=== PATIENT | female | born 1945 | race Caucasian/White ===

== ENCOUNTER 2017-07-14 12:02 | Inpatient (IN) | payer MEDICARE, OTHER ==
--- NOTE | 2017-07-14 12:20 | PDOC ---
History of Present Illness - General Chief Complaint: Rash Stated Complaint: EYE PROBLEM, COLD SORE Time Seen by Provider: 07/14/17 12:19 Past History - Past Medical History Allergies/Adverse Reactions: Allergies Allergy/AdvReac Type Severity Reaction Status Date / Time No Known Allergies Allergy Verified 07/14/17 12:03 Home Medications: Ambulatory Orders Esomeprazole Mag Trihydrate [Nexium] 40 mg PO DAILY 08/23/14 predniSONE [Deltasone -] 20 mg PO DAILY 08/23/14 Albuterol Sulfate Inhaler - [Ventolin HFA Inhaler -] 1 - 2 inh PO Q4H #1 inhaler 08/26/14 Amlodipine Besylate/Benazepril [Lotrel 10-20 mg Capsule] 1 each PO DAILY #30 capsule 08/26/14 Glyburide 5 mg PO DAILY #30 tablet 08/26/14 Guaifenesin [Robitussin -] 5 ml PO Q6H PRN #30 cup 08/26/14 Oseltamivir Phosphate [Tamiflu -] 75 mg PO BID #7 capsule 08/26/14 Sitagliptin Phosphate [Januvia] 100 mg PO DAILY@0700 #30 ud 08/26/14 Anemia: No Cancer: No Cardiac Disorders: No CVA: No COPD: No Diabetes: No HTN: Yes Hypercholesterolemia: No Seizures: No - Surgical History Cholecystectomy: Yes - Suicide/Smoking/Psychosocial Hx Smoking Status: No Smoking History: Never smoked Number of Cigarettes Smoked Daily: 0 Information on smoking cessation initiated: No Hx Alcohol Use: No Drug/Substance Use Hx: No Substance Use Type: None *Physical Exam - Vital Signs Last Vital Signs Temp Pulse Resp BP Pulse Ox 97.9 F 50 L 18 146/94 100 07/14/17 12:05 07/14/17 12:05 07/14/17 12:05 07/14/17 12:05 07/14/17 12:05 *DC/Admit/Observation/Transfer - Referrals Referrals: Ken Felipe [Primary Care Provider] - - Patient Instructions - Post Discharge Activity
[2017-07-14] MEDS ORDERED: SODIUM CHLORIDE 500 ML IV STA ×2 (12:50→14:18)
[2017-07-14] MEDS ORDERED: morphine SULFATE 4 MG/ML VIAL ONE (13:02)
[2017-07-14] MEDS ORDERED: morphine CARPU-JECT 4 MG/1 ML DISP.SYRIN IVPUSH ONE (13:02)
[2017-07-14] MEDS ORDERED: methylPREDNISolone NA SUCC 125 MG/2 ML VIAL ONE (13:03)
--- NOTE | 2017-07-14 13:14 | PDOC ---
History of Present Illness - General Chief Complaint: Rash Stated Complaint: EYE PROBLEM, COLD SORE Time Seen by Provider: 07/14/17 12:19 History Source: Patient, Family - History of Present Illness Timing/Duration: reports: other (6 days ago) Location: reports: extremities, face Past History - Past Medical History Allergies/Adverse Reactions: Allergies Allergy/AdvReac Type Severity Reaction Status Date / Time No Known Allergies Allergy Verified 07/14/17 12:03 Home Medications: Ambulatory Orders Esomeprazole Mag Trihydrate [Nexium] 40 mg PO DAILY 08/23/14 predniSONE [Deltasone -] 20 mg PO DAILY 08/23/14 Albuterol Sulfate Inhaler - [Ventolin HFA Inhaler -] 1 - 2 inh PO Q4H #1 inhaler 08/26/14 Amlodipine Besylate/Benazepril [Lotrel 10-20 mg Capsule] 1 each PO DAILY #30 capsule 08/26/14 Glyburide 5 mg PO DAILY #30 tablet 08/26/14 Guaifenesin [Robitussin -] 5 ml PO Q6H PRN #30 cup 08/26/14 Oseltamivir Phosphate [Tamiflu -] 75 mg PO BID #7 capsule 08/26/14 Sitagliptin Phosphate [Januvia] 100 mg PO DAILY@0700 #30 ud 08/26/14 Anemia: No Cancer: No Cardiac Disorders: No CVA: No COPD: No Diabetes: No HTN: Yes Hypercholesterolemia: No Seizures: No - Surgical History Cholecystectomy: Yes - Suicide/Smoking/Psychosocial Hx Smoking Status: No Smoking History: Never smoked Number of Cigarettes Smoked Daily: 0 Information on smoking cessation initiated: No Hx Alcohol Use: No Drug/Substance Use Hx: No Substance Use Type: None Review of Systems - Review of Systems Constitutional: Yes: Malaise, Weakness. No: Chills, Fever HEENTM: Yes: Mouth Pain Respiratory: No: Cough, Shortness of Breath Cardiac (ROS): No: Chest Pain ABD/GI: No: Diarrhea, Nausea, Vomiting Integumentary: Yes: Pruritus, Rash *Physical Exam - Vital Signs Last Vital Signs Temp Pulse Resp BP Pulse Ox 97.9 F 50 L 18 146/94 100 07/14/17 12:05 07/14/17 12:05 07/14/17 12:05 07/14/17 12:05 07/14/17 12:05 - Physical Exam General Appearance: Yes: Appropriately Dressed, Mild Distress HEENT: positive: Normal Voice, Other (minimal R conjunctival erythema w/ purulent discharge, hemorrhagic crusting andmucosal erosions to R upper lip and R buccal mucosa) Neck: positive: Supple Respiratory/Chest: positive: Lungs Clear, Normal Breath Sounds. negative: Respiratory Distress Cardiovascular: positive: Regular Rate, S1, S2 Female Pelvic Exam: positive: normal external exam Gastrointestinal/Abdominal: positive: Soft. negative: Tender Extremity: positive: Normal Inspection Integumentary: positive: Dry, Warm, Rash (multiple concentric lesions consisting of central erosion on an erythematous base w/ pale edematous rim c/w target lesion, also seen are a mixture of target lesions and erythematous plaques w/ dusky centers to extensor surface of b/l UE and over dosum of fingers b/l) Neurologic: positive: Fully Oriented, Alert, Normal Mood/Affect ED Treatment Course - LABORATORY CBC & Chemistry Diagram: 07/14/17 13:20 07/14/17 13:20 - RADIOLOGY Radiology Studies Ordered: Category Date Time Status CHEST X-RAY PORTABLE* [RAD] Stat Radiology 07/14/17 12:50 Ordered Medical Decision Making - Medical Decision Making 07/14/17 13:17 71-year-old female, history of hypertension, brought in by daughter for rash w/ malaise. As per family, patient developed painful rash to upper lip approximately 6 days ago that initially looked like blisters but has since gradually worsened and now involves oral mucosa with decreased po intake. Has also noticed pruritic rash to upper exts including palms. As per daughter, patient was seen by her primary doctor 4 days ago for R conjunctival erythema and discharge, was dx w/ conjunctivitis and was started on tobramycin ointment. Pt denies eye pain, fb sensation or visual changes. No fever, chills, nausea or vomiting. No drug/food allergies. Started on lisinopril 1 month ago. No lip , tongue swelling, voice changes, stridor or shortness of breath See exam High suspicion for erythema multiforme major, less likely SJS Stable in ED and non-toxic appearing w/ MM/cutaneous lesions classic for EM -pain control -IVF -steroids -wound care -labs -derm c/s -admission 07/14/17 13:[address] Abdalla of derm, who suggests findings most likely suggestive of erythema multiforme major and less likely SJR which is consistent with more of a diffuse rash and does not usually included target like lesions. Agrees with supportive care including lidex ointment to apply to oral wounds. Recommend drawing blood work for HSV 1/2. Hold off on antivirals at this time. MD to see patient in house in the a.m. 07/14/17 14:[address] Black who is covering for patient's PMD, Dr. Felipe, recommends protonix 40 twice a day. MD to place additional orders 0 *DC/Admit/Observation/Transfer Diagnosis at time of Disposition: Rash, Erythema multiforme with oral ulceration - Discharge Dispostion Condition at time of disposition: Fair Admit: Yes - Referrals - Patient Instructions - Post Discharge Activity
[2017-07-14] MEDS ORDERED: methylPREDNISolone NA SUCC 125 MG/2 ML VIAL IVPUSH ONE (13:27)
[2017-07-14 13:32] LABS: BASO % 0.7 % (0-2.0); EOS % 1.1 % (0-4.5); HEMOGLOBIN 13.7 GM/dL (10.7-15.3); LYMPH % 21.6 % (8-40); MCH 31.9 pg (25.7-33.7); MCHC 33.5 g/dl (32.0-36.0); MEAN CELL VOLUME 95.1 fl (80-96); MEAN PLT VOLUME 11.4 fl (7.5-11.1); MONO % 15.9 % (3.8-10.2); NEUT % 60.7 % (42.8-82.8); PLATELET COUNT 110 K/MM3 (134-434); RBC 4.31 M/mm3 (3.60-5.2); RDW 14.6 % (11.6-15.6); WHITE BLOOD COUNT 3.3 K/mm3 (4.0-10.0)
[2017-07-14 13:57] LABS: ANION GAP 5 (8-16); BLOOD UREA NITROGEN 18 mg/dL (7-18); CALCIUM 8.2 mg/dL (8.5-10.1); CHLORIDE 107 mmol/L (98-107); CO2 27 mmol/L (21-32); CREATININE 1.2 mg/dL (0.55-1.02); GLUCOSE,RANDOM 131 mg/dL (74-106); SGPT/ALT 23 U/L (12-78); SODIUM 139 mmol/L (136-145)
[2017-07-14 13:59] LABS: ALK PHOS 100 U/L (45-117); BILIRUBIN,TOTAL 1.1 mg/dL (0.2-1.0); TOT PROT 6.5 g/dl (6.4-8.2)
[2017-07-14 14:00] LABS: POTASSIUM 4.8 mmol/L (3.5-5.1); SGOT/AST 45 U/L (15-37)
[2017-07-14] MEDS ORDERED: PANTOPRAZOLE SODIUM 40 MG VIAL IVPUSH ONE (14:14)
[2017-07-14] MEDS: FLUOCINONIDE 0.05% TOP OINT (60 GM TUBE) TP SCH ×2 (15:00→21:45)
[2017-07-14] MEDS ORDERED: PANTOPRAZOLE SODIUM 40 MG VIAL ONE (16:43)
--- NOTE | 2017-07-14 17:45 | HP ---
Admitting History and Physical - Admission Chief Complaint: rash / inc blisters around the mouth History of Present Illness: 71-year-old female, history of hypertension, brought in by daughter for rash w/ malaise. As per family, patient developed painful rash to upper lip approximately 6 days ago that initially looked like blisters but has since gradually worsened and now involves oral mucosa with decreased po intake. Has also noticed pruritic rash to upper exts including palms. As per daughter, patient was seen by her primary doctor 4 days ago for R conjunctival erythema and discharge, was dx w/ conjunctivitis and was started on tobramycin ointment. Pt denies eye pain, fb sensation or visual changes. No fever, chills, nausea or vomiting. No drug/food allergies. Started on lisinopril 1 month ago. No lip , tongue swelling, voice changes, stridor or shortness of breath History Source: Patient, Family Member, Medical Record Limitations to Obtaining History: No Limitations - Past Medical History Cardiovascular: Yes: HTN Pulmonary: Yes: Pneumonia Dermatology: Yes: Other (skin lesions since june- followed by Dr Padron) - Past Surgical History Past Surgical History: Yes: Cholecystectomy - Smoking History Smoking history: Never smoked Aproximately how many cigarettes per day: 0 - Alcohol/Substance Use Hx Alcohol Use: No - Social History ADL: Independent History of Recent Travel: No (one year ago [facility]) Home Medications - Allergies Allergies/Adverse Reactions: Allergies Allergy/AdvReac Type Severity Reaction Status Date / Time No Known Allergies Allergy Verified 07/14/17 12:03 - Home Medications Home Medications: Ambulatory Orders Esomeprazole Magnesium 40 mg PO DAILY 07/14/17 Lisinopril [Zestril] 2.5 mg PO DAILY 07/14/17 Nifedipine [Nifedipine ER] 60 mg PO DAILY 07/14/17 Tobramycin Sulf/Dexamethasone [Tobradex *Eye Drops*] 1 drop OP Q4HWA 07/14/17 Review of Systems - Review of Systems Constitutional: reports: Loss of Appetite. denies: Chills, Fever Eyes: denies: Blurred Vision, Double Vision, Eye Pain, Photophobia, Recent Change in Vision HENT: reports: Difficult Swallowing, Gingival Bleeding Neck: reports: No Symptoms Cardiovascular: reports: No Symptoms Respiratory: reports: No Symptoms. denies: SOB, SOB on Exertion, Wheezing Gastrointestinal: reports: No Symptoms. denies: Abdominal Pain Genitourinary: reports: No Symptoms Breasts: reports: No Symptoms Reported Musculoskeletal: reports: No Symptoms Integumentary: reports: Blister, Change in Color, Erythema, Lesions Neurological: denies: Change in Speech, Confusion Endocrine: reports: No Symptoms Hematology/Lymphatic: reports: No Symptoms Psychiatric: reports: No Symptoms Physical Examination Vital Signs: Vital Signs Temperature 97.9 F 07/14/17 12:05 Pulse Rate 50 L 07/14/17 12:05 Respiratory Rate 18 07/14/17 12:05 Blood Pressure 146/94 07/14/17 12:05 O2 Sat by Pulse Oximetry (%) 100 07/14/17 12:05 Constitutional: Yes: Anxious, Mild Distress, Thin Eyes: Yes: EOM Intact, Other (right sclera injected /+ crusting) HENT: Yes: Atraumatic, Normocephalic, Other ( Herpes simplex labialis right upper lip vesicular lesions with some crusting) Neck: Yes: WNL, Supple, Trachea Midline Cardiovascular: Yes: Regular Rate and Rhythm Respiratory: Yes: Regular, CTA Bilaterally Gastrointestinal: Yes: Normal Bowel Sounds, Soft ...Rectal Exam: Yes: Deferred Renal/: Yes: WNL Breast(s): Yes: WNL Musculoskeletal: Yes: WNL Extremities: Yes: Erythema (dorsum of hands / chronic changes LE ( anterior knees )). No: Calf Tenderness, Cyanosis, Deformity Edema: No Peripheral Pulses WNL: Yes Integumentary: Yes: Rash Neurological: Yes: Alert ...Motor Strength: WNL Psychiatric: Yes: Alert, Oriented Labs: CBC, BMP 07/14/17 13:20 07/14/17 13:20 Problem List - Problems (1) Erythema multiforme with oral ulceration Assessment/Plan: IV steroids PPi Dermatology consult -- Dr Abdalla HSV Code(s): L51.9 - ERYTHEMA MULTIFORME, UNSPECIFIED; K12.1 - OTHER FORMS OF STOMATITIS (2) Herpes simplex labialis Assessment/Plan: valterx PO Code(s): B00.1 - HERPESVIRAL VESICULAR DERMATITIS (3) Rash Assessment/Plan: await derm opinion Code(s): R21 - RASH AND OTHER NONSPECIFIC SKIN ERUPTION (4) Oral ulcer Code(s): K12.1 - OTHER FORMS OF STOMATITIS (5) HTN (hypertension) Assessment/Plan: continue PO home meds Code(s): I10 - ESSENTIAL (PRIMARY) HYPERTENSION
[2017-07-14 18:15] VITALS: BMI 21.3
[2017-07-14] MEDS: methylPREDNISolone NA SUCC 125 MG/2 ML VIAL IVPUSH SCH (20:58)
[2017-07-14 21:59] LABS: URINE APPEARANCE CLEAR; URINE BILIRUBIN NEGATIVE (<2.0 mg/dL); URINE BLOOD NEGATIVE (NEGATIVE); URINE COLOR YELLOW; URINE GLUCOSE (UA) 1+ (NEGATIVE); URINE KETONE NEGATIVE (NEGATIVE); URINE LEUK ESTERASE NEGATIVE (NEGATIVE); URINE NITRITE NEGATIVE (NEGATIVE); URINE PROTEIN NEGATIVE (NEGATIVE); URINE UROBILINOGEN 4.0 E.U/dl mg/dL (0.2-1.0)
[2017-07-15] MEDS: methylPREDNISolone NA SUCC 125 MG/2 ML VIAL IVPUSH SCH ×3 (02:30→13:59)
[2017-07-15 07:28] LABS: HEMATOCRIT 42.2 % (32.4-45.2); HEMOGLOBIN 14.1 GM/dL (10.7-15.3); MCH 31.8 pg (25.7-33.7); MCHC 33.4 g/dl (32.0-36.0); MEAN CELL VOLUME 95.2 fl (80-96); MEAN PLT VOLUME 11.5 fl (7.5-11.1); PLATELET COUNT 100 K/MM3 (134-434); RBC 4.44 M/mm3 (3.60-5.2); RDW 14.3 % (11.6-15.6); WHITE BLOOD COUNT 3.4 K/mm3 (4.0-10.0)
[2017-07-15] MEDS: FLUOCINONIDE 0.05% TOP OINT (60 GM TUBE) TP SCH ×3 (07:30→21:52)
[2017-07-15 07:57] LABS: ALBUMIN 2.9 g/dl (3.4-5.0); ALK PHOS 100 U/L (45-117); ANION GAP 8 (8-16); BILIRUBIN,TOTAL 0.9 mg/dL (0.2-1.0); BLOOD UREA NITROGEN 17 mg/dL (7-18); CALCIUM 8.4 mg/dL (8.5-10.1); CHLORIDE 107 mmol/L (98-107); CO2 26 mmol/L (21-32); GLUCOSE,RANDOM 180 mg/dL (74-106); POTASSIUM 3.6 mmol/L (3.5-5.1); SGOT/AST 20 U/L (15-37); SGPT/ALT 26 U/L (12-78); SODIUM 141 mmol/L (136-145); TOT PROT 5.9 g/dl (6.4-8.2)
--- NOTE | 2017-07-15 11:34 | EKG ---
Test Reason : Blood Pressure : / mmHG Vent. Rate : 042 BPM Atrial Rate : 042 BPM P-R Int : 116 ms QRS Dur : 086 ms QT Int : 410 ms P-R-T Axes : 069 -22 -39 degrees QTc Int : 342 ms MARKED SINUS BRADYCARDIA NONSPECIFIC T WAVE ABNORMALITY ABNORMAL ECG WHEN COMPARED WITH ECG OF 23-AUG-2014 12:08, VENT. RATE HAS DECREASED BY 33 BPM T WAVE VARIATION Confirmed by QUETA CHE, TERI ([id number]) on 07/15/2017 11:34:31 AM Referred By: Confirmed By:TERI BIRCH MD
[2017-07-15] MEDS: NIFEdipine E.R 60 MG TABLET (UD) PO SCH (12:10)
--- NOTE | 2017-07-15 17:56 | CONSULT ---
Consult Consult Specialty:: Dermatology - History Source History Provided By: Patient, Medical Record Limitations to Obtaining History: Language Barrier - Past Medical History Cardio/Vascular: Yes: HTN Pulmonary: Yes: Pneumonia Dermatology: Yes: Other (skin lesions since june- followed by Dr Padron) - Past Surgical History Past Surgical History: Yes: Cholecystectomy - Alcohol/Substance Use Hx Alcohol Use: No - Smoking History Smoking history: Never smoked Aproximately how many cigarettes per day: 0 - Social History Usual Living Arrangement: With Child ADL: Independent History of Recent Travel: No (one year ago [facility]) Home Medications - Allergies Allergies/Adverse Reactions: Allergies Allergy/AdvReac Type Severity Reaction Status Date / Time No Known Allergies Allergy Verified 07/14/17 12:03 - Home Medications Home Medications: Ambulatory Orders Esomeprazole Magnesium 40 mg PO DAILY 07/14/17 Lisinopril [Zestril] 2.5 mg PO DAILY 07/14/17 Nifedipine [Nifedipine ER] 60 mg PO DAILY 07/14/17 Tobramycin Sulf/Dexamethasone [Tobradex *Eye Drops*] 1 drop OP Q4HWA 07/14/17 Physical Exam Vital Signs: Vital Signs Temperature 98.3 F 07/15/17 14:55 Pulse Rate 62 07/15/17 14:55 Respiratory Rate 18 07/15/17 14:55 Blood Pressure 114/66 07/15/17 14:55 O2 Sat by Pulse Oximetry (%) 96 07/15/17 09:00 Labs: CBC, BMP 07/15/17 07:10 07/15/17 07:10 Assessment/Plan 71 yr old woman with a recent history of rt eye conjuctivitis treated with tobramycin. She subsequently developed a vesicular eruption on the right upper lip and buccal mucosa on the rt side . She also has bulls eye targetoid lesions with central vesiculation on the dorsum of her fingers over the bony prominences and her elbows. Diagnosis Erythema multiforme Herpes simplex labialis is often the trigger for Erythema multiforme Would treat with Valtrex 1gm TID for a week (shingles dose ) due to the severity of the oral lesions continue topical Lidex to affected area and follow up as outpatient Will follow HSV serology
--- NOTE | 2017-07-15 21:06 | PN ---
Progress Note (short form) - Note Progress Note: patient seen and examined in room states feeling better -- able to eat today less swelling to right lower mandible resolving herpetic labial lesions to right upper lip Vital Signs Period Temp Pulse Resp BP Sys/[place] Pulse Ox Last 24 Hr 97.3 F-98.3 F 46-62 18-18 113-160/64-93 96 right slcera injected + crusting no periorbital swelling / EOMI / R temporal vision defect ? oral cavity examined -no swelling or collections lips / buccal mucosa or gums poor dentition neck supple no nodes heart S1/S2 Lungs clear bilat abd soft non tender ext no edema / chronic changes both upper and lower ext dorsum of hands and digit with resolving lesions CBC, BMP 07/15/17 07:10 07/15/17 07:10 Active Medications Fluocinonide (Lidex 0.05% Ointment -) 0 applic TP TID VERNON PRN Reason: Protocol Last Admin: 07/15/17 14:03 Dose: 1 applic Methylprednisolone Sodium Succinate (Solu-Medrol -) 125 mg IVPUSH Q6H-IV VERNON Last Admin: 07/15/17 13:59 Dose: 125 mg Nifedipine (Procardia Xl -) 60 mg PO DAILY VERNON Last Admin: 07/15/17 12:10 Dose: 60 mg # Erythema Multiforme appreciate Dr Coleman consult - continue recommendations Iv Steroids -- taper PPi BID # Herpes Labialis continue Valtrex to complete 7 days # HTN Continue outpte medications monitor BP Case discussed with daughter over the phone -- all concerns addressed. care discussed with patient in [place] - Daughter states this has happened before several times a yr over last 3 yrs
[2017-07-15] MEDS: PANTOPRAZOLE 40 MG TABLET (FP) PO SCH (21:50)
[2017-07-16] MEDS: methylPREDNISolone NA SUCC 125 MG/2 ML VIAL IVPUSH SCH ×3 (01:48→10:24)
[2017-07-16] MEDS: FLUOCINONIDE 0.05% TOP OINT (60 GM TUBE) TP SCH ×3 (06:36→21:14)
[2017-07-16] MEDS: PANTOPRAZOLE 40 MG TABLET (FP) PO SCH ×2 (10:19→21:14)
[2017-07-16] MEDS: NIFEdipine E.R 60 MG TABLET (UD) PO SCH (10:20)
--- NOTE | 2017-07-16 10:23 | PN ---
Progress Note (short form) - Note Progress Note: patient seen and examined in room significan clinical improvement resolving herpetic labial lesions to right upper lip hand lesions all resolving / itching is minimal Vital Signs Period Temp Pulse Resp BP Sys/[place]jas Pulse Ox Last 24 Hr 97.5 F-98.3 F 46-62 18-18 113-150/64-77 96 no periorbital swelling / EOMI / R temporal vision defect ? oral cavity examined -no swelling or collections lips / buccal mucosa or gums poor dentition neck supple no nodes heart S1/S2 Lungs clear bilat abd soft non tender ext no edema / chronic changes both upper and lower ext dorsum of hands and digit with resolving lesions CBC, BMP 07/15/17 07:10 07/15/17 07:10 Active Medications Fluocinonide (Lidex 0.05% Ointment -) 0 applic TP TID VERNON PRN Reason: Protocol Last Admin: 07/16/17 06:36 Dose: 1 applic Methylprednisolone Sodium Succinate (Solu-Medrol -) 40 mg IVPUSH BID VERNON Nifedipine (Procardia Xl -) 60 mg PO DAILY [facility] Last Admin: 07/15/17 12:10 Dose: 60 mg Pantoprazole Sodium (Protonix -) 40 mg PO BID VERNON Last Admin: 07/15/17 21:50 Dose: 40 mg # Erythema Multiforme appreciate Dr Coleman consult - continue recommendations Steroids -- taper to d/c systemic continue topical / antihistamine PPi BID patient reports this "always" happens after she has outbreak of "blisters on her lips" then it affects her hands and knees and seems to resolve over approx 2 weeks discussed with patient an daughter to prophylax for HSV for 1 yr - the understand and agreeable will follow up as out patient closely # visula field defect ??? await opth eval and recommendation # Herpes Labialis --resolving continue Valtrex to complete 7 days then prophylax # HTN Continue outpte medications monitor BP Problem List - Problems (1) Erythema multiforme with oral ulceration Code(s): L51.9 - ERYTHEMA MULTIFORME, UNSPECIFIED; K12.1 - OTHER FORMS OF STOMATITIS (2) Herpes simplex labialis Code(s): B00.1 - HERPESVIRAL VESICULAR DERMATITIS (3) Rash Code(s): R21 - RASH AND OTHER NONSPECIFIC SKIN ERUPTION (4) Oral ulcer Code(s): K12.1 - OTHER FORMS OF STOMATITIS (5) HTN (hypertension) Code(s): I10 - ESSENTIAL (PRIMARY) HYPERTENSION
--- NOTE | 2017-07-16 10:29 | CONSULT ---
Consult - text type - Consultation Consultation Note: Ophthalmology consult 71 year old woman with ocular history significant for glaucoma and branch retinal vein occlusion OD (pt has been receiving intravitreal injections monthly for BRVO OD). Presents with upper lid rash and treated conjunctivitis OD. Pt last treated with Lumigan drops for glaucoma, but patient not receiving this currently at the hospital vision, near, with correction OD 20/70 OS 20/50 P 3/3--> 3+/3+, no APD EOM full OU PLE - RUL excoriated upper eyelid, no edema; left lids WNL S/C no injection OU K clear OU A/C formed OU I round Impression/Plan 1. Glaucoma - advise restarting Lumigan one drop OU at bedtime (latanoprost if Lumigan is an issue) - follow up as on outpatient to check eye pressure 2. History of conjunctivitis OD - no evidence today - however, due to excoriated lesion on RUL, advise starting Tobramycin or Erythromycin ophthalmic ointment to right upper eyelid twice a day 3. BRVO OD - follow up with retinal specialist as scheduled later this month - stable vision, pt reassured 4. upper lip rash - continue current mgmt (all of above discussed with patient's daughter over the phone)
[2017-07-16] MEDS: methylPREDNISolone NA SUCC 40 MG/1 ML VIAL IVPUSH SCH ×2 (12:34→21:14)
[2017-07-16] MEDS ORDERED: PT OWN MED DRAWER 7, Y5N ONE (13:11)
[2017-07-17] MEDS: FLUOCINONIDE 0.05% TOP OINT (60 GM TUBE) TP SCH (05:46)
--- NOTE | 2017-07-17 09:39 | DS ---
Physical Examination Vital Signs: Vital Signs Temperature 98.1 F 07/17/17 06:00 Pulse Rate 40 L 07/17/17 06:00 Respiratory Rate 18 07/17/17 06:00 Blood Pressure 146/81 07/17/17 06:00 O2 Sat by Pulse Oximetry (%) 99 07/16/17 21:00 Findings/Remarks: 71-year-old female, history of hypertension, brought in by daughter for rash w/ malaise. As per family, patient developed painful rash to upper lip approximately 6 days ago that initially looked like blisters but has since gradually worsened and now involves oral mucosa with decreased po intake. Has also noticed pruritic rash to upper exts including palms. As per daughter, patient was seen by her primary doctor 4 days ago for R conjunctival erythema and discharge, was dx w/ conjunctivitis and was started on tobramycin ointment. Pt denies eye pain, fb sensation or visual changes. No fever, chills, nausea or vomiting. No drug/food allergies. Started on lisinopril 1 month ago. No lip , tongue swelling, voice changes, stridor or shortness of breath # Erythema Multiforme appreciate Dr Coleman consult -recommendations for topical steroids and tx for herpes labialis Steroids -- taper to d/c systemic continue topical / antihistamine PPi BID patient reports this "always" happens after she has outbreak of "blisters on her lips" then it affects her hands and knees and seems to resolve over approx 2 weeks discussed with patient an daughter to prophylax for HSV for 1 yr - the understand and agreeable will follow up as out patient closely # visula field defect ??? seen by Dr Castelan patient with Glaucoma / already receiving tx with retinologist -- instructed to follow up eye drops ordered and instructed to continue # Herpes Labialis --resolving continue Valtrex to complete 7 days then prophylax # HTN Continue outpte medications monitor BP Constitutional: Yes: No Distress, Calm, Thin HENT: Yes: Atraumatic, Normocephalic, Other (right upper lip resolving herpetic lesions no swelling speech clear). No: Drooling Neck: Yes: Supple, Trachea Midline Cardiovascular: Yes: Regular Rate and Rhythm Respiratory: Yes: Regular, CTA Bilaterally Gastrointestinal: Yes: Normal Bowel Sounds, Soft ...Rectal Exam: Yes: Deferred Renal/: Yes: WNL Breast(s): Yes: WNL Musculoskeletal: Yes: WNL Extremities: Yes: WNL Edema: No Peripheral Pulses WNL: Yes Integumentary: Yes: WNL Neurological: Yes: Alert, Oriented ...Motor Strength: WNL Psychiatric: Yes: Alert, Oriented Labs: CBC, BMP 07/15/17 07:10 07/15/17 07:10 Discharge Summary Reason For Visit: DERMATITIS Current Active Problems Erythema multiforme with oral ulceration (Acute) HTN (hypertension) (Acute) Herpes simplex labialis (Acute) Rash (Acute) Condition: Improved - Instructions Referrals: Ken Felipe [Primary Care Provider] - Matilda Abdalla MD [Staff Physician] - Josue Castelan [Staff Physician] - Disposition: HOME - Home Medications Comprehensive Discharge Medication List: Ambulatory Orders Esomeprazole Magnesium 40 mg PO DAILY 07/14/17 Lisinopril [Zestril] 2.5 mg PO DAILY 07/14/17 Nifedipine [Nifedipine ER] 60 mg PO DAILY 07/14/17 Tobramycin Sulf/Dexamethasone [Tobradex *Eye Drops*] 1 drop OP Q4HWA 07/14/17 lumigan 1 drop OU HS
[2017-07-17] MEDS: NIFEdipine E.R 60 MG TABLET (UD) PO SCH (10:35)
[2017-07-17] MEDS: methylPREDNISolone NA SUCC 40 MG/1 ML VIAL IVPUSH SCH (10:35)
[2017-07-17] MEDS: PANTOPRAZOLE 40 MG TABLET (FP) PO SCH (10:35)
[2017-07-17 10:51] VITALS: BP 120/90; PULSE 62; TEMP 97.4
[2017-07-17] MEDS ORDERED: LATANOPROST 0.005% OPHTH SOLN 2.5ML BOTTLE OU SCH (22:00)
== END 2017-07-17 11:16 | disposition home or self-care (01) | DRG 596 ==
LOC: JER 12:02 → JERBED 14:13 → J5S 17:39
PROVIDERS: ADMIT Family Medicine; ATTEND Family Medicine
DX: L51.8 Other erythema multiforme (principal); H34.8112 Central retinal vein occlusion, right eye, stable; I10 Essential (primary) hypertension; B00.1 Herpesviral vesicular dermatitis; H40.9 Unspecified glaucoma; K13.0 Diseases of lips; K12.1 Other forms of stomatitis; R21 Rash and other nonspecific skin eruption
CPT/HCPCS: 36415; 71045-TC-FY; 80053; 81003; 85025; 85027; 86695; 86696; 93005; 93010; 99282-25

== ENCOUNTER 2019-12-24 10:31 | Emergency (ER) | payer MEDICARE, OTHER ==
[2019-12-24 10:42] VITALS: TEMP 97.9; BMI 24.6
--- NOTE | 2019-12-24 12:13 | PDOC ---
History of Present Illness - General Chief Complaint: Weakness Stated Complaint: WEAKNESS Time Seen by Provider: 12/24/19 11:04 - History of Present Illness Initial Comments: 12/24/19 12:13 HPI 74 y/o F hx of HTN presenting with weakness for 2 wks and daily headaches for the last 5 days. pt reports headaches are relieved by advil but always return the next day pt has had increased weakness over the last 2wks with no neurological deficits pt with no headache at this time, no nausea, vomiting, blurry vision, fevers, chills. there was a similiar incident in 2012 were patients blood pressure medications had to be adjusted by her pcp. PMHx: as noted above ROS: as noted SHx: Denies Etoh, IVDA, tobacco use Allergies: NKDA ROS: GENERAL/CONSTITUTIONAL: No fever or chills. No weakness. HEAD, EYES, EARS, NOSE AND THROAT: No change in vision. No ear pain or discharge. No sore throat. CARDIOVASCULAR: No chest pain or shortness of breath RESPIRATORY: No cough, wheezing, or hemoptysis. GASTROINTESTINAL: No nausea, vomiting, diarrhea or constipation. GENITOURINARY: No dysuria, frequency, or change in urination. MUSCULOSKELETAL: No joint or muscle swelling or pain. No neck or back pain. SKIN: No rash NEUROLOGIC: No headache, vertigo, loss of consciousness, or change in strength/sensation. ENDOCRINE: No increased thirst. No abnormal weight change HEMATOLOGIC/LYMPHATIC: No anemia, easy bleeding, or history of blood clots. ALLERGIC/IMMUNOLOGIC: No hives or skin allergy. PE: GENERAL: Awake, alert, and fully oriented, in no acute distress HEAD: No signs of trauma, normocephalic, atraumatic EYES: PERRLA, EOMI, sclera anicteric, conjunctiva clear ENT: Auricles normal inspection, hearing grossly normal, nares patent, oropharynx clear without exudates. Moist mucosa NECK: Normal ROM, supple, no lymphadenopathy, JVD, or masses LUNGS: No distress, speaks full sentences, clear to auscultation bilaterally HEART: Regular rate and rhythm, normal S1 and S2, no murmurs, rubs or gallops, peripheral pulses normal and equal bilaterally. ABDOMEN: Soft, nontender, normoactive bowel sounds. No guarding, no rebound. No masses EXTREMITIES : Normal inspection, Normal range of motion, no edema. No clubbing or cyanosis NEUROLOGICAL: Cranial nerves II through XII grossly intact. Normal speech, normal gait, no focal sensorimotor deficits SKIN: Warm, Dry, normal turgor, no rashes or lesions noted MDM DDx including but not limited to: Workup: TX: Scores - HEART score - EKG: normal sinus rhythm, HR bpm, RI ms, QRS ms, QTc ms twi in I, v5, v6 ED course meds: Re-assessment: 12/24/19 14:21 12/24/19 14:46 Past History - Medical History Allergies/Adverse Reactions: Allergies Allergy/AdvReac Type Severity Reaction Status Date / Time No Known Allergies Allergy Verified 12/24/19 10:42 Home Medications: Ambulatory Orders Amlodipine Besylate 2.5 mg PO DAILY 12/24/19 Cholecalciferol (Vitamin D3) [Vitamin D3] 5,000 unit PO DAILY 12/24/19 Esomeprazole Magnesium 40 mg PO DAILY 12/24/19 Losartan Potassium 100 mg PO DAILY 12/24/19 Travoprost [Travatan Z] 2.5 ml OP HS 12/24/19 Valacyclovir HCl [Valtrex -] 1,000 mg PO DAILY 12/24/19 Anemia: No Cancer: No Cardiac Disorders: No CVA: No COPD: No Diabetes: No HTN: Yes Hypercholesterolemia: No Seizures: No - Surgical History Cholecystectomy: Yes - Reproductive History Is Patient Now?: No - Psycho-Social/Smoking History Smoking Status: No Smoking History: Never smoked Have you smoked in the past 12 months: No Number of Cigarettes Smoked Daily: 0 Information on smoking cessation initiated: No - Substance Abuse Hx (Audit-C & DAST Scrn) How often the patient has a drink containing alcohol: Never Score: In Men: 4 or > Positive; In Women: 3 or > Positive: 0 Screen Result (Pos requires Nsg. Audit-10AR): Negative In the last yr the pt used illegal drug/Rx for NonMed reason: No Score: Yes response is considered Positive: 0 Screen Result (Positive result requires Nsg. DAST-10): Negative *Physical Exam - Vital Signs Last Vital Signs Temp Pulse Resp BP Pulse Ox 97.9 F 89 19 190/96 H 100 12/24/19 10:39 12/24/19 12:11 12/24/19 12:11 12/24/19 12:11 12/24/19 10:39 ED Treatment Course - LABORATORY CBC & Chemistry Diagram: 12/24/19 11:04 12/24/19 11:04 - RADIOLOGY Radiology Studies Ordered: Category Date Time Status HEAD CT WITHOUT CONTRAST [CT] Stat CT Scan 12/24/19 11:57 Ordered Discharge - Discharge Information Problems reviewed: Yes Clinical Impression/Diagnosis: Headache, Weakness Condition: Stable Disposition: HOME - Follow up/Referral Referrals: Ken Felipe [Primary Care Provider] - - Patient Discharge Instructions Additional Instructions: You were seen in the ED with complaint of headache. your head CT showed no bleeds or fractures however, your blood pressure was high. follow up with your primary care doctor about Follow up with him in the next 2-3 days. adjustments that might need to be made to your medications. - Post Discharge Activity
[2019-12-24 12:23] LABS: BASO % 1.1 % (0-2.0); EOS % 0.6 % (0-4.5); HEMATOCRIT 44.4 % (32.4-45.2); HEMOGLOBIN 14.6 GM/dL (10.7-15.3); LYMPH % 27.9 % (8-40); MCH 32.8 pg (25.7-33.7); MCHC 32.9 g/dl (32.0-36.0); MEAN CELL VOLUME 99.6 fl (80-96); MEAN PLT VOLUME 10.8 fl (7.5-11.1); NEUT % 59.4 % (42.8-82.8); PLATELET COUNT 95 K/MM3 (134-434); RBC 4.46 M/mm3 (3.60-5.2); RDW 14.4 % (11.6-15.6); WHITE BLOOD COUNT 3.2 K/mm3 (4.0-10.0)
--- NOTE | 2019-12-24 12:36 | EKG ---
Test Reason : Blood Pressure : / mmHG Vent. Rate : 072 BPM Atrial Rate : 072 BPM P-R Int : 156 ms QRS Dur : 096 ms QT Int : 390 ms P-R-T Axes : -17 -27 024 degrees QTc Int : 427 ms NORMAL SINUS RHYTHM WITH SINUS ARRHYTHMIA VOLTAGE CRITERIA FOR LEFT VENTRICULAR HYPERTROPHY NONSPECIFIC T WAVE ABNORMALITY ABNORMAL ECG WHEN COMPARED WITH ECG OF 14-JUL-2017 13:57, VENT. RATE HAS INCREASED BY 30 BPM NONSPECIFIC T WAVE ABNORMALITY, IMPROVED IN INFERIOR LEADS NONSPECIFIC T WAVE ABNORMALITY, IMPROVED IN LATERAL LEADS QT HAS LENGTHENED Confirmed by CANDY ZAMORANO MD ([id number]) on 12/24/2019 12:36:29 PM Referred By: Confirmed By:CANDY ZAMORANO MD
[2019-12-24 12:43] LABS: ALBUMIN 3.8 g/dl (3.4-5.0); BLOOD UREA NITROGEN 16.3 mg/dL (7-18); CALCIUM 9.4 mg/dL (8.5-10.1); TOT PROT 6.7 g/dl (6.4-8.2)
[2019-12-24 13:44] LABS: URINE APPEARANCE CLEAR; URINE BILIRUBIN NEGATIVE (NEGATIVE); URINE COLOR YELLOW; URINE GLUCOSE (UA) NEGATIVE (NEGATIVE); URINE KETONE NEGATIVE (NEGATIVE); URINE LEUK ESTERASE NEGATIVE (NEGATIVE); URINE NITRITE NEGATIVE (NEGATIVE); URINE PROTEIN NEGATIVE (NEGATIVE); URINE UROBILINOGEN 0.2 mg/dL (0.2-1.0)
[2019-12-24 14:54] VITALS: BP 170/85; PULSE 81
--- NOTE | 2019-12-24 15:01 | PDOC ---
Documentation entered by Floyd Burgos SCRIBE, acting as scribe for Ling Torres MD. Ling Torres MD: This documentation has been prepared by the Loretta menendez Xhesika, SCRIBE, under my direction and personally reviewed by me in its entirety. I confirm that the documentation accurately reflects all work, treatment, procedures, and medical decision making performed by me. Attending Attestation - Resident Resident Name: Belle Fong - [facility] HPI: 12/24/19 11:19 The patient is a 74y/o F with a pmh of hypertension who presents to the ED with headache x4days. Pt describes her headache as intermittent, modern frontal headache, alleviated with sleeping and Ibuprofen. Pt denies prior headache history. Denies CP, SOB, dizziness. Denies fevers, chills, cough, N/V/D. Denies URI symptoms. Allergies: NKDA - Physicial Exam PE: 12/24/19 13:54 GENERAL: Awake, alert, and fully oriented, in no acute distress HEAD: No signs of trauma NECK: Normal ROM, supple, no lymphadenopathy, JVD, or masses LUNGS: Breath sounds equal, clear to auscultation bilaterally. No wheezes, and no crackles HEART: +systolic murmur. Regular rate and rhythm, normal S1 and S2, no rubs or gallops ABDOMEN: Soft, nontender, normoactive bowel sounds. No guarding, no rebound. No masses EXTREMITIES: Normal range of motion, no edema. No clubbing or cyanosis. No cords, erythema, or tenderness NEUROLOGICAL: Cranial nerves II through XII grossly intact. SKIN: Warm, Dry, normal turgor, no rashes lesions noted. - Medical Decision Making 12/24/19 14:45 Pt presents to the ED complaining of intermittent nightly headache that is relieved by tylenol and sleep. Denies current complaints. Symptoms are consistent with migraine, but given her age, tumor and other space occupying lesion remained in the differential, so CT head was performed and is negative. Will discharge home with neurology follow up for persistent CARLSON. Discharge - Discharge Information Problems reviewed: Yes Clinical Impression/Diagnosis: Headache, Weakness Condition: Stable Disposition: HOME - Follow up/Referral Referrals: Ken Felipe [Primary Care Provider] - - Patient Discharge Instructions Additional Instructions: You were seen in the ED with complaint of headache. your head CT showed no bleeds or fractures however, your blood pressure was high. follow up with your primary care doctor about Follow up with him in the next 2-3 days. adjustments that might need to be made to your medications. - Post Discharge Activity
== END 2019-12-24 14:54 | disposition home or self-care (01) ==
LOC: JER 10:31
DX: R51 Headache (principal); R42 Dizziness and giddiness
CPT/HCPCS: 36415; 70450-TC; 80053; 81003; 85025; 93005; 93010; 99285-25

== ENCOUNTER 2021-05-06 11:19 | Emergency (ER) | payer OTHER ==
[2021-05-06 11:35] VITALS: BP 112/67; PULSE 88; TEMP 97.9; BMI 17.9
== END 2021-05-06 12:57 | disposition home or self-care (01) ==
LOC: JERFT 11:19
DX: B37.0 Candidal stomatitis (principal)
CPT/HCPCS: 82962; 99283-25

== ENCOUNTER 2021-05-08 18:29 | Emergency (ER) | payer OTHER ==
[2021-05-08 18:46] VITALS: BP 104/77; PULSE 83; TEMP 98.5; BMI 20.7
== END 2021-05-08 19:50 | disposition home or self-care (01) ==
LOC: JERFT 18:29
DX: B37.0 Candidal stomatitis (principal)
CPT/HCPCS: 99281-25